=== PATIENT | male | born 1960 | race Caucasian/White ===

== ENCOUNTER 2017-03-28 13:33 | Emergency (ER) | payer SELFPAY ==
[~2017-03-28] VITALS: Ht 170.2 cm; Wt 72.0 kg
[2017-03-28 13:38] VITALS: TEMP 36.9; Ht 170.2 cm; Wt 72.0 kg
[2017-03-28] MEDS ORDERED: IBUP-1428 PO (14:09)
[2017-03-28] MEDS ORDERED: RANI150T85 PO (14:09)
[2017-03-28 14:47] LABS: HEMATOCRIT 43.3 % (42-52); MEAN CELL VOLUME 89.8 fL (80-100); MEAN CORPUSCULAR HEMOGLOBIN 31.1 pg (25-34); MEAN CORPUSCULAR HGB CONC 34.6 g/dl (32-36); MEAN PLATELET VOLUME 7.9 fL (7.4-10.4); PLATELET COUNT 130 K/uL (130-400); RED CELL DISTRIBUTION WIDTH CV 13.4 % (11.5-14.5); RED CELL DISTRIBUTION WIDTH SD 44.5 fL (36.4-46.3); WHITE BLOOD COUNT 9.35 K/uL (4.8-10.8)
[2017-03-28 15:03] LABS: CREATININE 1.09 mg/dl (0.60-1.40)
[2017-03-28 15:04] LABS: ALBUMIN 3.3 gm/dl (3.4-5.0); CALCIUM 8.8 mg/dl (8.5-10.1); POTASSIUM 3.5 mmol/L (3.5-5.1)
[2017-03-28 15:06] LABS: TOTAL PROTEIN 6.9 gm/dl (6.4-8.2)
[2017-03-28 15:08] LABS: BASO % 0.2 %; BASO ABS # 0.02 K/uL (0-0.2); IG# 0.03 K/uL (0.00-0.02); LYMPH % 7.8 %; LYMPH ABS # 0.73 K/uL (1.2-3.4); MONO % 7.9 %; MONO ABS # 0.74 K/uL (0.11-0.59); NEUT % 83.8 %; NEUT ABS # 7.83 K/uL (1.4-6.5)
--- NOTE | 2017-03-28 15:08 | DIAGNOSTIC IMAGING REPORT ---
TWO VIEW CHEST CLINICAL HISTORY: Cough. FINDINGS: PA and lateral chest radiographs are compared to study dated 05/08/2015. The cardiomediastinal silhouette is unremarkable. The lungs and pleural spaces are clear. There is no pneumothorax. The bony thorax appears intact. IMPRESSION: No active disease in the chest. Electronically signed by: Abdon Hi M.D. 03/28/2017 3:07 PM Dictated Date/Time: 03/28/2017 3:06 PM
[2017-03-28 15:25] LABS: INFLUENZA B PCR Neg for Influ B (NEG)
[2017-03-28 15:26] LABS: INFLUENZA A PCR POS for Influ A (NEG)
[2017-03-28] MEDS ORDERED: ONDANSETRON INJ 2 MG/ML 2 ML VIAL IV STA (15:43)
[2017-03-28] MEDS ORDERED: SODIUM CHLORIDE 0.9% 1000ML 1,000 ML IV STA (15:43)
[2017-03-28] MEDS ORDERED: ONDA4TAB10 SL (16:41)
--- NOTE | 2017-03-28 17:45 | EMERGENCY ROOM VISIT NOTE ---
History Report prepared by Dequan: Biju Kramer Under the Supervision of: Dr. Huang Tobin M.D. First contact with patient: 14:17 Chief Complaint: COUGH Stated Complaint: HEAVY COUGHING,VOMITING Nursing Triage Summary: pt to the ED with c/o "bad case acid reflux with hacking coughing" given Rx for cough and was given OTC meds and not helping and sx 1 wk productive ramirez sputum History of Present Illness The patient is a 56 year old male who presents to the Emergency Room with complaints of a persistent illness that started a week ago. He states that he has been coughing a lot, and if he eats anything he vomits it up. The patient adds that he has been dry heaving. He says that he has been having chills with body aches, and is very congested. He notes that he is also concerned about his sore throat. The patient denies any notable shortness of breath, chest pain, abdominal pain, fevers, leg swelling, leg pain, or diarrhea. He notes no pertinent chronic medical conditions. He states that he did not get his flu shot this season. He has not seen his doctor since he has gotten sick. Source of History: patient Onset: A week ago Position: other (global - illness) Quality: other (has not seen doctor for this yet) Timing: other (persistent) Associated Symptoms: + chills, + sorethroat, + cough, + vomiting (and dry heaving), No fevers, No chest pain, No SOB, No abdominal pain, No diarrhea Note: Associated symptoms: Congestion. Body aches. Denies leg swelling or leg pain. Review of Systems See HPI for pertinent positives & negatives. A total of 10 systems reviewed and were otherwise negative. Past Medical & Surgical Medical Problems: (1) No significant past medical history Family History No pertinent family history Social History Smoking Status: Never Smoker Drug Use: none Marital Status: single Occupation Status: employed Current/Historical Medications Scheduled Ondasetron Odt (Zofran Odt), 4 MG SL Q6H Ranitidine (Zantac), 150 MG PO BID Scheduled PRN Ibuprofen (Motrin), 800 MG PO Q8H PRN for Pain Allergies Coded Allergies: Penicillins (Unverified Allergy, Unknown, , 03/28/17) Physical Exam Vital Signs Date Time Temp Pulse Resp B/P (MAP) Pulse Ox O2 Delivery O2 Flow Rate FiO2 03/28/17 17:27 20 03/28/17 15:18 95 16 111/56 93 Room Air 03/28/17 13:38 36.9 112 20 121/68 95 Room Air Physical Exam Constitutional: Vital signs reviewed. Eyes: Pupils are equal round reactive to light. Conjunctiva are noninjected. ENT: Pharynx was erythematous without exudate. Mucous membranes are dry. Neck supple without meningeal signs. Respiratory: Clear to auscultation bilaterally. Breath sounds are equal bilaterally. Cardiovascular: Regular rate and rhythm. No rubs or gallops. GI: Soft, nondistended and nontender. Bowel sounds are present. No organomegaly. Musculoskeletal: No peripheral edema. No lower extremity tenderness. Integumentary: No cyanosis. Neurological: The patient is awake and alert. No focal deficits. Psychiatric: Normal affect. Medical Decision & Procedures ER Provider Diagnostic Interpretation: X-ray results as stated below per interpretation by me and the radiologist: TWO VIEW CHEST CLINICAL HISTORY: Cough. FINDINGS: PA and lateral chest radiographs are compared to study dated 05/08/2015. The cardiomediastinal silhouette is unremarkable. The lungs and pleural spaces are clear. There is no pneumothorax. The bony thorax appears intact. IMPRESSION: No active disease in the chest. Electronically signed by: Abdon Hi M.D. 03/28/2017 3:07 PM Dictated Date/Time: 03/28/2017 3:06 PM Laboratory Results 03/28/17 14:40 Red Blood Count 4.82, Mean Corpuscular Volume 89.8, Mean Corpuscular Hemoglobin 31.1, Mean Corpuscular Hemoglobin Concent 34.6, Mean Platelet Volume 7.9, Neutrophils (%) (Auto) 83.8, Lymphocytes (%) (Auto) 7.8, Monocytes (%) (Auto) 7.9, Eosinophils (%) (Auto) 0.0, Basophils (%) (Auto) 0.2, Neutrophils # (Auto) 7.83, Lymphocytes # (Auto) 0.73, Monocytes # (Auto) 0.74, Eosinophils # (Auto) 0.00, Basophils # (Auto) 0.02 03/28/17 14:40 Test 03/28/17 14:30 03/28/17 14:40 Influenza Type A (RT-PCR) POS for Influ A (NEG) Influenza Type B (RT-PCR) Neg for Influ B (NEG) White Blood Count 9.35 K/uL (4.8-10.8) Red Blood Count 4.82 M/uL (4.7-6.1) Hemoglobin 15.0 g/dL (14.0-18.0) Hematocrit 43.3 % (42-52) Mean Corpuscular Volume 89.8 fL (80-100) Mean Corpuscular Hemoglobin 31.1 pg (25-34) Mean Corpuscular Hemoglobin Concent 34.6 g/dl (32-36) Platelet Count 130 K/uL (130-400) Mean Platelet Volume 7.9 fL (7.4-10.4) Neutrophils (%) (Auto) 83.8 % Lymphocytes (%) (Auto) 7.8 % Monocytes (%) (Auto) 7.9 % Eosinophils (%) (Auto) 0.0 % Basophils (%) (Auto) 0.2 % Neutrophils # (Auto) 7.83 K/uL (1.4-6.5) Lymphocytes # (Auto) 0.73 K/uL (1.2-3.4) Monocytes # (Auto) 0.74 K/uL (0.11-0.59) Eosinophils # (Auto) 0.00 K/uL (0-0.5) Basophils # (Auto) 0.02 K/uL (0-0.2) RDW Standard Deviation 44.5 fL (36.4-46.3) RDW Coefficient of Variation 13.4 % (11.5-14.5) Immature Granulocyte % (Auto) 0.3 % Immature Granulocyte # (Auto) 0.03 K/uL (0.00-0.02) Anion Gap 10.0 mmol/L (3-11) Est Creatinine Clear Calc Drug Dose 72.5 ml/min Estimated GFR () 88.7 Estimated GFR (Non- 76.5 BUN/Creatinine Ratio 12.4 (10-20) Calcium Level 8.8 mg/dl (8.5-10.1) Total Bilirubin 0.9 mg/dl (0.2-1) Direct Bilirubin 0.2 mg/dl (0-0.2) Aspartate Amino Transf (AST/SGOT) 16 U/L (15-37) Alanine Aminotransferase (ALT/SGPT) 24 U/L (12-78) Alkaline Phosphatase 73 U/L (45-117) Total Protein 6.9 gm/dl (6.4-8.2) Albumin 3.3 gm/dl (3.4-5.0) Lipase 116 U/L (73-393) Laboratory results as reviewed by me. Medications Administered Medications (Trade) Dose Ordered Sig/Olga Route Start Time Stop Time Status Last Admin Dose Admin Sodium Chloride 1,000 ml @ 999 mls/hr Q1H1M STAT IV 03/28/17 15:43 03/28/17 16:43 DC 03/28/17 16:17 999 MLS/HR Ondansetron HCl (Zofran Inj) 4 mg NOW STAT IV 03/28/17 15:43 03/28/17 15:44 DC 03/28/17 16:17 4 MG ED Course 1419: The patient was evaluated in room A10. A complete history and physical exam was performed. 1543: Ordered Zofran Inj 4 mg IV, NSS 1000 ml @ 999 mls/hr IV. 1557: I reevaluated the patient and talked to him about his diagnosis and lab work. 1638: I reevaluated the patient and he is feeling a bit better and is ready for discharge. He expressed understanding and agreement of the treatment plan. Medical Decision This is a 56-year-old male presents with flulike symptoms with vomiting. Differential diagnosis includes influenza, dehydration, metabolic derangement, strep pharyngitis, viral syndrome, pneumonia. I did perform a limited focused review of portions of the patient's old chart on the electronic medical record. The patient has had no recent pertinent visits to this hospital. I did evaluate the patient as noted above. I did perform a rapid strep test which was negative. Throat culture is pending. IV access was established. I did treat the patient with normal saline IV and Zofran IV. I did order and personally review the patient's chest x-ray as described above. There is no evidence of pneumonia. I did order and review the patient's blood work as noted in the electronic medical record. Patient does have a positive PCR influenza swab. I did discuss the test results with the patient. He is feeling somewhat better. I did discuss Tamiflu with him and he concurred that it was not indicated. I did discharge patient with a prescription for Zofran and a school note. Medication Reconcilliation Current Medication List: was personally reviewed by me Blood Pressure Screening Patient's blood pressure: Normal blood pressure Impression Primary Impression: Influenza A Additional Impression: Dehydration Scribe Attestation The scribe's documentation has been prepared under my direct and personally reviewed by me in its entirety. I confirm that the note above accurately reflects all work, treatment, procedures, and medical decision making performed by me. Departure Information Dispostion Home / Self-Care Prescriptions Ondasetron Odt (ZOFRAN ODT) 4 Mg Tab 4 MG SL Q6H for Nausea, #6 TAB Prov: Huang Tobin M.D. 03/28/17 Referrals Jero Morrissey D.O. (PCP) Forms HOME CARE DOCUMENTATION FORM, IMPORTANT VISIT INFORMATION, Work Instructions Patient Instructions ED Flu, My [facility] Additional Instructions You have been examined and treated today on an emergency basis only. This is not a substitute for, or an effort to provide, complete comprehensive medical care. It is impossible to recognize and treat all injuries or illnesses in a single emergency department visit. It is therefore important that you follow up closely with your physician. Call as soon as possible for an appointment. Return for worsening symptoms or if you develop chest pain, shortness of breath or any other concerning symptoms. Problem Qualifiers
[2017-03-28 18:23] VITALS: BP 107/63; PULSE 97; O2SAT 92
== END 2017-03-28 18:24 | disposition home or self-care (01) ==
LOC: C.EDB 13:35 → C.EDA 18:24
DX: J10.1 Influenza due to other identified influenza virus with other respiratory manifestations (principal); E86.0 Dehydration; Z88.0 Allergy status to penicillin